=== PATIENT | male | born 1965 | race Caucasian/White ===

== ENCOUNTER 2017-04-24 17:54 | Emergency (ER) | payer OTHER ==
[~2017-04-24] VITALS: Ht 160 cm; Wt 72.0 kg
[2017-04-24 17:59] VITALS: Ht 160 cm; Wt 72.0 kg
[2017-04-24] MEDS ORDERED: SOD CHLORIDE 0.9% 1,000 ML IV STA (20:36)
[2017-04-24 20:52] LABS: BASOPHIL # 0.1 10^3/ul (0.0-0.1); BASOPHILS % 0.5 % (0.0-2.0); EOSINOPHILS # 0.1 10^3/ul (0.0-0.5); EOSINOPHILS % 0.5 % (0.0-7.0); HEMATOCRIT 48.9 % (42.0-52.0); HEMOGLOBIN 16.2 g/dl (14.0-18.0); LYMPHOCYTES # 2.1 10^3/ul (0.8-2.9); LYMPHOCYTES % 22.5 % (15.0-51.0); MEAN CORPUSCULAR HEMOGLOBIN 30.7 pg (29.0-33.0); MEAN CORPUSCULAR HGB CONC 33.1 g/dl (32.0-37.0); MEAN CORPUSCULAR VOLUME 92.6 fl (82.0-101.0); MEAN PLATELET VOLUME 10.2 fl (7.4-10.4); MONOCYTES % 10.3 % (0.0-11.0); NEUTROPHILS % 65.9 % (39.0-77.0); PLATELET COUNT 291 10^3/UL (140-415); RED BLOOD COUNT 5.28 10^6/ul (4.70-6.10); RED CELL DISTRIBUTION WIDTH 13.8 % (11.5-14.5); WHITE BLOOD COUNT 9.4 10^3/ul (4.8-10.8)
[2017-04-24 21:05] LABS: INR 0.95; PROTIME 12.7 Sec (12.2-14.2)
[2017-04-24] MEDS ORDERED: ACETAMINOPHEN 325 MG TAB ONE (21:06)
[2017-04-24 21:07] LABS: ALANINE AMINOTRANSFERASE 41 IU/L (13-69); ALBUMIN 4.6 g/dl (3.3-4.9); ALBUMIN/GLOBULIN RATIO 1.09; ALKALINE PHOSPHATASE 104 IU/L (42-121); ANION GAP 18 (8-16); ASPARTATE AMINO TRANSFERASE 65 IU/L (15-46); BILIRUBIN,INDIRECT 1.1 mg/dl (0-1.1); BILIRUBIN,TOTAL 1.1 mg/dl (0.2-1.3); BLOOD UREA NITROGEN 20 mg/dl (7-20); CALCIUM 9.6 mg/dl (8.4-10.2); CARBON DIOXIDE 33 mmol/L (21-31); CHLORIDE 95 mmol/L (97-110); CREATININE 0.94 mg/dl (0.61-1.24); GLUCOSE 101 mg/dl (70-220); POTASSIUM 4.6 mmol/L (3.5-5.1); SODIUM 141 mmol/L (135-144); TOTAL PROTEIN 8.8 g/dl (6.1-8.1)
[2017-04-24 21:19] LABS: TROPONIN-I < 0.012 ng/ml (0.00-0.12)
[2017-04-24] MEDS ORDERED: ACETAMINOPHEN 325 MG TAB PO ONE (21:30)
[2017-04-24] MEDS ORDERED: morphine 4 MG/ML VIAL IV STA (21:45)
[2017-04-24] MEDS ORDERED: BELLADONNA/PHENOBARBITAL TAB PO STA (21:45)
[2017-04-24] MEDS ORDERED: ONDANSETRON 4 MG INJ IV STA (21:45)
[2017-04-24] MEDS ORDERED: LIDOCAINE/MYLANTA 40 ML BTL PO STA (21:45)
[2017-04-24] MEDS ORDERED: MAG355OR14 PO (21:48)
[2017-04-24] MEDS ORDERED: OMEP40CA6 PO (21:48)
[2017-04-24] MEDS ORDERED: ONDA4TAB8 PO (21:50)
--- NOTE | 2017-04-24 22:00 | ERD ---
ER Documentation Chief Complaint Date/Time DATE: 04/24/17 TIME: 21:52 Chief Complaint ABD PAIN SINCE YESTERDAY WITH N/V. RELEASED FROM [employer] [place] [facility] HPI 51-year-old man with history of alcoholism presents with epigastric abdominal pain and burning with nausea and a couple episodes of clear nonbloody nonbilious emesis. He states he has been drinking all weekend and does have a history of alcohol abuse. He states he has had similar episodes of abdominal pain which resolved spontaneously. He denies suicidal homicidal ideation, no melena or blood per rectum, no hemoptysis, no fevers or chills, no headache or blurry vision. ROS All systems reviewed and are negative except as per history of present illness. Medications Home Meds Active Scripts Ondansetron Hcl* (Zofran*) 4 Mg Tablet, 4 MG PO Q8H Y for NAUSEA AND/OR VOMITING , #15 TAB Prov:EDWARDO NGUYEN MD 04/24/17 Mag Hydrox/Al Hydrox/Simeth (Maalox Advanced Suspension) 355 Ml Oral.susp, 2 TSP PO TID for PAIN, #24 Prov:EDWARDO NGUYEN MD 04/24/17 Omeprazole* (Omeprazole*) 40 Mg Capsule.dr, 40 MG PO DAILY, #30 CAP Prov:EDWARDO NGUYEN MD 04/24/17 Allergies Allergies: Coded Allergies: No Known Allergy (Unverified , 04/24/17) PMhx/Soc Alcoholism Medical and Surgical Hx: pt denies Medical Hx History of Surgery: Yes (left arm, right shoulder) Anesthesia Reaction: No Hx Neurological Disorder: No Hx Respiratory Disorders: No Hx Cardiac Disorders: No Hx Psychiatric Problems: No Hx Miscellaneous Medical Probl: No Hx Alcohol Use: Yes (weekends) Hx Substance Use: No Hx Tobacco Use: No Smoking Status: Never smoker FmHx Family History: No diabetes Physical Exam Vitals Vital Signs Date Time Temp Pulse Resp B/P Pulse Ox O2 Delivery O2 Flow Rate FiO2 04/24/17 17:59 99.4 109 20 145/96 97 Physical Exam GENERAL: Well-developed, well-nourished, appears dehydrated, afebrile HEENT: Dry mucous membranes, pink conjunctiva, no cervical spine tenderness or step-off deformities, no goiter, no jaundice or icterus, extraocular movements intact without pain. No submandibular induration, and no pharyngeal erythema NEURO: Alert and oriented 3, cranial nerves II through XII intact bilaterally, pupils equal round reactive to light, no focal deficits or facial asymmetry, sensation intact distally Strength 5/5 in upper and lower extremities bilaterally CARDIAC: Regular rate and rhythm, no murmurs rubs or gallops LUNGS: Clear bilaterally no wheezing crackles or stridor ABDOMEN: Soft nontender, no guarding, no rigidity, no rebound, no psoas sign no obturator sign. Normoactive bowel sounds SKIN: Warm and dry to touch, no abrasions, contusions, or hematomas, no lacerations, no ecchymosis, no target lesions, and without ulcers EXTREMITIES: No clubbing cyanosis or edema, calves are bilaterally symmetrical, no Homans sign, no popliteal cord sign. Distal pulses equal and bilateral PSYCH: Normal affect without agitation or irritability Result Diagram: 04/24/17 1950 04/24/17 [facility] Results 24 hrs Laboratory Tests Test 04/24/17 19:50 White Blood Count 9.410^3/ul Red Blood Count 5.2810^6/ul Hemoglobin 16.2g/dl Hematocrit 48.9% Mean Corpuscular Volume 92.6fl Mean Corpuscular Hemoglobin 30.7pg Mean Corpuscular Hemoglobin Concent 33.1g/dl Red Cell Distribution Width 13.8% Platelet Count 34458^3/UL Mean Platelet Volume 10.2fl Neutrophils % 65.9% Lymphocytes % 22.5% Monocytes % 10.3% Eosinophils % 0.5% Basophils % 0.5% Nucleated Red Blood Cells % 0.0/100WBC Neutrophils # (Manual) 6.210^3/ul Lymphocytes # 2.110^3/ul Monocytes # 1.010^3/ul Eosinophils # 0.110^3/ul Basophils # 0.110^3/ul Nucleated Red Blood Cells # 0.010^3/ul Prothrombin Time 12.7Sec Prothrombin Time Ratio 1.0 INR International Normalized Ratio 0.95 Sodium Level 141mmol/L Potassium Level 4.6mmol/L Chloride Level 95mmol/L Carbon Dioxide Level 33mmol/L Anion Gap 18 Blood Urea Nitrogen 20mg/dl Creatinine 0.94mg/dl Glucose Level 101mg/dl Calcium Level 9.6mg/dl Total Bilirubin 1.1mg/dl Direct Bilirubin 0.00mg/dl Indirect Bilirubin 1.1mg/dl Aspartate Amino Transf (AST/SGOT) 65IU/L Alanine Aminotransferase (ALT/SGPT) 41IU/L Alkaline Phosphatase 104IU/L Troponin I < 0.012ng/ml Total Protein 8.8g/dl Albumin 4.6g/dl Globulin 4.20g/dl Albumin/Globulin Ratio 1.09 Lipase 35U/L Current Medications Medications (Trade) Dose Ordered Sig/Vicky Route PRN Reason Start Time Stop Time Status Last Admin Dose Admin Sodium Chloride (NS) 1,000 ml @ 1,000 mls/hr Q1H STAT IV 04/24/17 20:36 04/24/17 21:35 DC 04/24/17 20:43 Acetaminophen (Tylenol Tab) 325 mg STK-MED ONCE .ROUTE 04/24/17 21:06 04/24/17 21:07 DC Acetaminophen (Tylenol Tab) 650 mg ONCE ONCE PO 04/24/17 21:30 04/24/17 21:30 DC Morphine Sulfate (morphine) 4 mg ONCE STAT IV 04/24/17 21:45 04/24/17 21:46 UNV Ondansetron HCl (Zofran Inj) 4 mg ONCE STAT IV 04/24/17 21:45 04/24/17 21:46 UNV Miscellaneous Medication (Gi Cocktail (2)) 40 ml ONCE STAT PO 04/24/17 21:45 04/24/17 21:46 UNV Belladonna/ Phenobarbital () 2 tab ONCE STAT PO 04/24/17 21:45 04/24/17 21:46 UNV Procedures/MDM IV line was established 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 Patient was afebrile. I administered 2 L normal saline intravenously for dehydration, morphine 4 mg IV , GI cocktail 30 cc p.o., Acetaminophen 650 mg p.o., and, Zofran 4 mg IV with good effect. EKG performed, read by me: 81 bpm, normal sinus rhythm, normal axis, no acute ST segment changes, narrow QRS complex, with good R-wave progression in progression in precordial leads CBC and electrolytes were unremarkable, liver function tests normal, lipase normal. Troponin was negative. Differential diagnoses considered, included but not limited to acute coronary syndrome, pulmonary embolism, aortic dissection, abdominal aortic aneurysm, sepsis, stroke, meningitis, encephalitis, pneumonia, appendicitis, cholecystitis , bowel obstruction, pyelonephritis, nephrolithiasis, cystitis, as well as metabolic, hematologic, and electrolyte abnormalities. As well as abscess, cellulitis, fractures, and dislocations. Patient feels much better at this time, and vital signs are normal, symptoms have improved. I did give strict instructions to return to the ED if symptoms continue or worsen, patient will otherwise follow-up with primary care physician. Patient understood instructions and agreed to plan. Disclaimer: Inadvertent spelling and grammatical errors are likely due to EHR/ dictation software use and do not reflect on the overall quality of patient care. Also, please note that the electronic time recorded on this note does not necessarily reflect the actual time of the patient encounter. Departure Diagnosis: Primary Impression: Abdominal pain Abdominal location: epigastric Qualified Code: R10.13 - Epigastric pain Additional Impressions: Alcoholic gastritis Chronicity: acute Gastritis bleeding: without bleeding Qualified Code: K29.20 - Acute alcoholic gastritis without hemorrhage Dehydration Alcoholism Condition: Good Patient Instructions: Abdominal Pain, Gastritis Vs. Ulcer, Alcohol Abuse EDWARDO NGUYEN MD Apr 24, 2017 22:00
[2017-04-24 23:29] VITALS: BP 129/84; PULSE 75; RESP 16; TEMP 99.8
== END 2017-04-24 23:31 | disposition home or self-care (01) ==
LOC: E/R 17:54
DX: R10.13 Epigastric pain (principal); K29.20 Alcoholic gastritis without bleeding; E86.0 Dehydration; F10.20 Alcohol dependence, uncomplicated; R11.10 Vomiting, unspecified
CPT/HCPCS: 36415; 80053; 83690; 84484; 85025; 85610; 93005; 96374; 96375; J2270; J2405; J7030; Z7502; Z7610

== ENCOUNTER 2017-08-19 01:54 | Emergency (ER) | END 2017-08-19 10:40 | disposition home or self-care (01) ==